=== PATIENT | male | born 1980 | race Caucasian/White ===

== ENCOUNTER 2020-08-12 07:56 | Outpatient (CLI) | payer BC, OTHER ==
--- NOTE | 2020-08-12 10:35 | CT ---
CT LEFT WRIST WITHOUT CONTRAST: HISTORY: Closed nondisplaced fracture of the scaphoid. COMPARISON: Radiograph 07/15/2020. FINDINGS: Nondisplaced fracture through the radial styloid process involving the metaphysis laterally and exten ding through the physeal scar and terminating at the lunate fossa. This fracture appears to be heali ng. There is also a scaphoid waist fracture without displacement. No significant cortical displacement. The fracture does extend from the medial to the lateral cortex and is healing. Mild dorsal scapholunate interval widening. Ulnar styloid process is intact. Hook of the hamate tubercle trapezium are intact. Incidental note is made of a carpal boss of the mi ddle finger metacarpal base dorsal aspect. IMPRESSION: 1. Healing nondisplaced transversely oriented fracture through the scaphoid waist. 2. Healing ulnar styloid process fracture. 3. Mild dorsal widening of the scapholunate interval. POS: HOME
== END 2020-08-12 07:57 | disposition home or self-care (01) ==
LOC: SCSCT 07:56
PROVIDERS: ATTEND Orthopaedic Surgery Hand Surgery
DX: S62.002D Unspecified fracture of navicular [scaphoid] bone of left wrist, subsequent encounter for fracture with routine healing (principal); S52.612D Displaced fracture of left ulna styloid process, subsequent encounter for closed fracture with routine healing